=== PATIENT | male | born 1945 | race Caucasian/White ===

== ENCOUNTER → 2019-01-29 | Outpatient (CLI) | payer MEDICARE ==
--- NOTE | 2019-01-29 09:38 | RAD ---
CT Head without contrast 01/29/2019 9:13 AM Indication: Memory loss Comparison: None Findings: No intracranial hemorrhage is seen. No evidence of acute territorial infarct is seen. Note that CT is limited in sensitivity for acute ischemia. If there is clinical concern for acute ischemia offers more sensitive evaluation. Age-related atrophic changes are noted. There is patchy periventricular and deep white matter hypoattenuation which is nonspecific, but most commonly relates to chronic small vessel disease. There is a possible small chronic lacunar infarct involving the right olivia. No abnormal extra axial fluid collection is identified. No mass effect or midline shift is seen. No acute osseous abnormalities are seen. Impression: 1. No acute intracranial process identified 2. Age-related atrophy, and evidence of chronic small vessel disease as described CT DOSING PQRS STATEMENT: One or more of the following individualized dose reduction techniques were utilized for this examination: 1. Automated exposure control 2. Adjustment of the mA and/or kV according to patient size 3. Use of iterative reconstruction technique Electronically signed by: Xavier Eddy MD (01/29/2019 9:35 AM) [id number]
== END | disposition home or self-care (01) ==
LOC: CT 09:09
PROVIDERS: ATTEND Family Medicine
DX: G31.89 Other specified degenerative diseases of nervous system (principal); I73.89 Other specified peripheral vascular diseases
CPT/HCPCS: 70450